=== PATIENT | female | born 1965 | race Caucasian/White ===

== ENCOUNTER 2016-11-24 17:40 | Emergency (ER) | payer BC ==
[2016-11-24] MEDS ORDERED: Tetan/Diph/Pertus SYR(Tdap)* 0.5 ML SYR(BOOSTRIX) use SYR IM ONE (19:21)
[2016-11-24] MEDS ORDERED: Lidocaine 2% PF * 5 ML VIAL INJ ONE (19:22)
--- NOTE | 2016-11-24 19:40 | UC ---
Laceration HPI - HPI Summary HPI Summary: laceration to left index finger on a kitchen knife about 2 hours ago - History Of Current Complaint Chief Complaint: UCLaceration Stated Complaint: FINGER LACERATION Time Seen by Provider: 11/24/16 19:15 Hx Obtained From: Patient Hx Last Menstrual Period: November 03 Laceration Location: Finger Mechanism Of Injury: Sharp Trauma Onset/Duration: Sudden Onset Severity: Mild Aggravating Factors: Nothing Related History: Dominant Hand Right - Allergies/Home Medications Allergies/Adverse Reactions: Allergies Allergy/AdvReac Type Severity Reaction Status Date / Time No Known Allergies Allergy Verified 11/12/15 14:48 PMH/Surg Hx/FS Hx/Imm Hx Previously Healthy: No Endocrine History: Diabetes Other Endocrine History: type 2 last HgA1C was 6% - Surgical History Surgical History: None - Family History Known Family History: Positive: Other - Breast cancer - mother father adopted fam hx unknown Negative: Cardiac Disease, Hypertension, Diabetes Family History: Father is adopted - Social History Occupation: Employed Full-time Lives: With Family Alcohol Use: Rare Substance Use Type: None Smoking Status (MU): Never Smoked Tobacco Review of Systems Constitutional: Negative Skin: Other - laceration left distal index finger Eyes: Negative ENT: Negative Respiratory: Negative Cardiovascular: Negative Gastrointestinal: Negative Genitourinary: Negative Motor: Negative Neurovascular: Negative Musculoskeletal: Negative Neurological: Negative Psychological: Negative All Other Systems Reviewed And Are Negative: Yes Physical Exam Triage Information Reviewed: Yes Appearance: Well-Appearing, No Pain Distress, Well-Nourished Vital Signs: Initial Vital Signs Temp 98.1 F 11/24/16 19:02 Pulse 90 11/24/16 19:02 Resp 16 11/24/16 19:02 Pulse Ox 100 11/24/16 19:02 Vital Signs Reviewed: Yes Eye Exam: Normal Eyes: Positive: Conjunctiva Clear ENT Exam: Normal ENT: Positive: Normal ENT inspection, Hearing grossly normal. Negative: Nasal congestion, Nasal drainage, Trismus, Muffled/hoarse voice Dental Exam: Normal Neck exam: Normal Neck: Positive: Supple, Nontender Respiratory Exam: Normal Respiratory: Positive: No respiratory distress, No accessory muscle use Cardiovascular Exam: Normal Cardiovascular: Positive: RRR, Pulses Normal, Brisk Capillary Refill Musculoskeletal Exam: Normal Musculoskeletal: Positive: Strength Intact, ROM Intact, No Edema Neurological Exam: Normal Neurological: Positive: Alert, Muscle Tone Normal Psychological Exam: Normal Psychological: Positive: Normal Response To Family Skin Exam: Normal Laceration Repair - Laceration Repair 1 Description: Linear - 4 number 5.0 prolene Laceration Size After Repair: Length (cm) - 2, Width (mm) - `, Depth (mm) - 3 Modified For Repair: No Type Injection: Digital Anesthesia Used: 2.0% Lido Cleansing Completed Via Routine Prep: Yes Irrigation With Pressure Irrigation Device: Yes Closure Material: Sutures Closure Method: Single Layer Suture Of: Skin Suture Type: Prolene Laceration Course/Dx - Course/Dx Course Of Treatment: dsd, obsever daily for infection, follow with pcp prn - Differential Dx - Laceration/Wound Differental Diagnoses: Avulsion, Laceration, Suture Removal Provider Diagnoses: 2 cm laceration repair left index finger Discharge - Discharge Plan Condition: Stable Disposition: HOME Patient Education Materials: Ibuprofen (By mouth), Finger Laceration (ED) Referrals: Ish Reed MD [Primary Care Provider] - If Needed Additional Instructions: Return in 10 days for suture removal
[2016-11-24 20:44] VITALS: BP 130/80
== END 2016-11-24 20:30 | disposition home or self-care (01) ==
LOC: UCEAST 17:40
DX: S61.211A Laceration without foreign body of left index finger without damage to nail, initial encounter (principal); W26.0XXA Contact with knife, initial encounter; Y93.9 Activity, unspecified; Y99.9 Unspecified external cause status
CPT/HCPCS: 12001; 90471; 90715; 99211; G0463

== ENCOUNTER 2016-12-04 12:57 | Emergency (ER) | payer BC ==
[2016-12-04 15:07] VITALS: BP 131/87
[2016-12-04] MEDS ORDERED: Benzoin Compound STICK TOPICAL ONE (15:16)
--- NOTE | 2016-12-04 15:17 | UC ---
Skin Complaint HPI - HPI Summary HPI Summary: here for suture removal from left index finger-laceration occured 10 days ago--- healing well--no issues or evidence of infection - History of Current Complaint Chief Complaint: UCSkin Time Seen by Provider: 12/04/16 15:10 Stated Complaint: SUTURE REMOVAL Hx Obtained From: Patient Hx Last Menstrual Period: one month ago ?: No Onset/Duration: Gradual Onset Timing: Constant Onset Severity: Mild Current Severity: None Location: Discrete - left index finger Aggravating: Nothing Alleviating: Nothing Associated Signs & Symptoms: Positive: Negative - Allergy/Home Medications Allergies/Adverse Reactions: Allergies Allergy/AdvReac Type Severity Reaction Status Date / Time No Known Allergies Allergy Verified 12/04/16 15:07 Review of Systems Constitutional: Negative Skin: Other - healing wound left index finger Eyes: Negative ENT: Negative Respiratory: Negative Cardiovascular: Negative Gastrointestinal: Negative Genitourinary: Negative Motor: Negative Neurovascular: Negative Musculoskeletal: Negative Neurological: Negative Psychological: Negative Is Patient Immunocompromised?: No All Other Systems Reviewed And Are Negative: Yes PMH/Surg Hx/FS Hx/Imm Hx Previously Healthy: No Endocrine History: Diabetes, Hypothyroidism, Dyslipidemia Cardiovascular History: Hypertension - Surgical History Surgical History: Yes Surgery Procedure, Year, and Place: Thyroid 1996 - Family History Known Family History: Positive: Other - Breast cancer - mother father adopted fam hx unknown Negative: Cardiac Disease, Hypertension, Diabetes Family History: Father is adopted - Social History Occupation: Employed Full-time Lives: With Family Alcohol Use: Occasionally Substance Use Type: None Smoking Status (MU): Never Smoked Tobacco Physical Exam Triage Information Reviewed: Yes Appearance: Well-Appearing, No Pain Distress, Well-Nourished Vital Signs: Initial Vital Signs Temp 98.3 F 12/04/16 15:04 Pulse 96 12/04/16 15:04 Resp 12 12/04/16 15:04 BP 131/87 12/04/16 15:04 Pulse Ox 99 12/04/16 15:04 Vital Signs Reviewed: Yes Eye Exam: Normal Eyes: Positive: Conjunctiva Clear ENT Exam: Normal ENT: Positive: Normal ENT inspection, Hearing grossly normal. Negative: Nasal congestion, Nasal drainage, Trismus, Muffled/hoarse voice Dental Exam: Normal Neck exam: Normal Neck: Positive: Supple, Nontender Respiratory Exam: Normal Respiratory: Positive: Chest non-tender, No respiratory distress, No accessory muscle use, Decreased breath sounds. Negative: Respiratory distress Cardiovascular Exam: Normal Cardiovascular: Positive: RRR, Pulses Normal, Brisk Capillary Refill Musculoskeletal Exam: Normal Musculoskeletal: Positive: Strength Intact, ROM Intact, No Edema Neurological Exam: Normal Neurological: Positive: Alert, Muscle Tone Normal Psychological Exam: Normal Psychological: Positive: Normal Response To Family, Age Appropriate Behavior Skin Exam: Other Skin: Positive: Other - healing wound left index finger Course/Dx - Course Course Of Treatment: sutures removed patient tolerated well steri strips applied for addition protection follow up prn - Differential Diagnoses - Skin Complaint Differential Diagnoses: Abscess, Cellulitis, Other - healing wound - Diagnoses Provider Diagnoses: Healing wound left index finger Discharge - Discharge Plan Condition: Stable Disposition: HOME Patient Education Materials: Finger Laceration (ED), Steristrips (ED) Referrals: Ish Reed MD [Primary Care Provider] - If Needed
[2016-12-04] MEDS ORDERED: Benzoin Compound STICK ONE (15:28)
== END 2016-12-04 15:33 | disposition home or self-care (01) ==
LOC: UCEAST 12:57
DX: S61.211D Laceration without foreign body of left index finger without damage to nail, subsequent encounter (principal); W45.8XXD Other foreign body or object entering through skin, subsequent encounter; Y92.9 Unspecified place or not applicable; E11.9 Type 2 diabetes mellitus without complications; E03.9 Hypothyroidism, unspecified; E78.5 Hyperlipidemia, unspecified; I10 Essential (primary) hypertension

== ENCOUNTER 2017-03-20 08:12 | Emergency (ER) | payer BC ==
--- NOTE | 2017-03-20 08:20 | UC ---
Lower Extremity/Ankle HPI - HPI Summary HPI Summary: Pt presents with for left ankle pain. She tells me that last night she was walking in the dark and sustained an inversion left ankle injury. Had immediate pain followed by swelling. Pain is location on the medial aspect of the ankle, but the majority of swelling is on the lateral aspect. Has been using crutches, icing, and elevating since last night. Denies previous injury to this LE. Denies numbness, tingling, or loss of sensation. - History of Current Complaint Stated Complaint: ankle injury Time Seen by Provider: 03/20/17 08:13 Hx Obtained From: Patient Hx Last Menstrual Period: one month ago Onset/Duration: Sudden Onset Severity Initially: Moderate Severity Currently: Mild Pain Intensity: 1 Pain Scale Used: 0-10 Numeric Aggravating Factor(s): Standing, Ambulation Alleviating Factor(s): Rest, Elevation, Ice Able to Bear Weight: Yes - with pain - Allergies/Home Medications Allergies/Adverse Reactions: Allergies Allergy/AdvReac Type Severity Reaction Status Date / Time No Known Allergies Allergy Verified 03/20/17 08:25 Home Medications: Home Medications Cholecalciferol [Vitamin D] 1 tab PO DAILY 03/20/17 [History Confirmed 03/20/17] Naproxen Sodium [Naproxen Sodium 220 mg] 2 tab PO Q12HR PRN 03/20/17 [History Confirmed 03/20/17] PMH/Surg Hx/FS Hx/Imm Hx Previously Healthy: Yes Endocrine History: Diabetes, Hypothyroidism, Dyslipidemia Cardiovascular History: Hypertension - Surgical History Surgical History: Yes Surgery Procedure, Year, and Place: Thyroid 1996 - Family History Known Family History: Positive: Other - Breast cancer - mother father adopted fam hx unknown Negative: Cardiac Disease, Hypertension, Diabetes Family History: Father is adopted - Social History Occupation: Employed Full-time Lives: With Family Alcohol Use: Occasionally Substance Use Type: None Smoking Status (MU): Never Smoked Tobacco Review of Systems Constitutional: Negative Respiratory: Negative Cardiovascular: Negative Musculoskeletal: Decreased ROM - left ankle, Edema - left ankle, Other: - Pain left ankle Neurological: Negative Psychological: Negative All Other Systems Reviewed And Are Negative: Yes Physical Exam Triage Information Reviewed: Yes Appearance: Well-Appearing, Well-Nourished Vital Signs Reviewed: Yes Neck: Positive: Supple, Nontender, No Lymphadenopathy Respiratory: Positive: Chest non-tender, Lungs clear, Normal breath sounds Cardiovascular: Positive: RRR, No Murmur, Pulses Normal - left ankle and foot Musculoskeletal: Positive: Strength Limited @ - left ankle, ROM Limited @ - Left ankle due to pain. Able to flex, extend, tim, and invert but all with pain along the posterolateral and medial ankle., Edema @ - Left lateral ankle - moderate, Other: - Left ankle: TTP over lateral malleolus, posterolateral ankle , and medial malleolus. No obvious bony deformites. No increased laxity. Neurological: Positive: Alert, Other: - Sensations intact left foot and all toes. Psychological: Positive: Age Appropriate Behavior Skin: Positive: Other - No ecchymosis or open wounds.. Negative: rashes Lower Extremity Course/Dx - Course Course Of Treatment: Ankle sprain. XR negative for acute injury. She is in sigificant pain with point tenderness on the medial and lateral malleoli - I suggested she contact orthopedics today for an appointment this week. Gel splint and DISHA wrap applied today. She will continue with ibuprofen/naproxen for pain. - Differential Dx/Diagnosis Differential Diagnosis/HQI/PQRI: Contusion, Dislocation, Fracture (Closed), Sprain, Strain Provider Diagnoses: Left Ankle sprain Discharge - Discharge Plan Condition: Stable Disposition: HOME Patient Education Materials: Ankle Sprain (ED) Referrals: Ish Reed MD [Primary Care Provider] - Singh Brown MD [Medical Doctor] - As Soon As Possible Additional Instructions: If you develop a fever, SOB, chest pain, new or worsening symptoms - please call your PCP or go to the ED. Your blood pressure was high at todays visit. Please see your primary provider within 4 weeks for recheck and re-evaluation. 1) Continue taking ibuprofen or your at home Naproxen for pain and swelling. 2) Rest, Ice, and Elevate your ankle for the next 24-48 hours. Continue using crutches and the gel splint as needed for pain/discomfort. 3) Please call the number below to schedule a follow up with Orthopedics at their next available appointment time.
[2017-03-20 08:26] VITALS: BP 155/93
--- NOTE | 2017-03-20 08:50 | RAD ---
HISTORY: Left ankle pain, inversion COMPARISONS: None VIEWS: 3, Frontal, lateral, and oblique views of the left ankle FINDINGS: BONE DENSITY: Normal. BONES: There are well-corticated ossicles along the medial and lateral malleoli. There is no acute displaced fracture. There is a plantar calcaneal enthesophyte. JOINTS: There is no arthropathy. ALIGNMENT: There is no dislocation. SOFT TISSUES: There is circumferential soft tissue swelling. OTHER FINDINGS: None. IMPRESSION: 1. SOFT TISSUE SWELLING. 2. EVIDENCE OF REMOTE AVULSION INJURIES OF THE BILATERAL MALLEOLI, WITHOUT ACUTE OSSEOUS INJURY. 3. IF SYMPTOMS PERSIST, RECOMMEND REPEAT IMAGING.
== END 2017-03-20 09:20 | disposition home or self-care (01) ==
LOC: UCEAST 08:12
DX: S93.402A Sprain of unspecified ligament of left ankle, initial encounter (principal); X58.XXXA Exposure to other specified factors, initial encounter; Y93.01 Activity, walking, marching and hiking; Y92.9 Unspecified place or not applicable; E11.9 Type 2 diabetes mellitus without complications; E03.9 Hypothyroidism, unspecified; E78.5 Hyperlipidemia, unspecified; I10 Essential (primary) hypertension
CPT/HCPCS: 99213; G0463